=== PATIENT | male | born 1995 | race Hispanic/Latino ===

== ENCOUNTER 2017-11-02 23:22 | Emergency (ER) | payer OTHER, BC ==
[~2017-11-02] VITALS: Ht 177.8 cm; Wt 101.2 kg
[2017-11-03] MEDS ORDERED: BUPIVACAINE HCL 0.25% 10ML MPF VIAL INJ ONE (01:15)
[2017-11-03] MEDS ORDERED: TETANUS/DIPHTHERIA TOX ADULT 0.5 ML SYR IM ONE (01:15)
--- NOTE | 2017-11-03 01:54 | Diagnostic Imaging Report ---
FINGER LEFT 2 views HISTORY: For an body. COMPARISON: None FINDINGS: Bones: No displaced fracture. Osseous alignment is within normal limits. Joints: The joint spaces are well-maintained. Soft tissues: The soft tissues appear unremarkable. IMPRESSION: 1. No acute radiographic abnormality. 2. No evidence of radiopaque foreign body involving the fifth digit Signed by: Dr. Iggy Ruth M.D. on 11/03/2017 1:50 AM
== END 2017-11-03 04:13 | disposition home or self-care (01) ==
LOC: ER 23:22
DX: S61.217A Laceration without foreign body of left little finger without damage to nail, initial encounter (principal); W26.8XXA Contact with other sharp object(s), not elsewhere classified, initial encounter; Y99.0 Civilian activity done for income or pay
CPT/HCPCS: 90471; 90714; 99283